=== PATIENT | male | born 1950 | race Two or more races ===

== ENCOUNTER → 2017-07-03 | Outpatient (CLI) | payer MEDICARE ==
[~2017-07-03] VITALS: Ht 188 cm; Wt 101.3 kg
[~2017-07-03] MED LIST: ASPI81TA23 PO; CHLORHEXIDINE GLUCONATE 2 % 1 PACK (2 CLOTHS) TOPICAL PRN; LACTATED RINGER'S 1000 ML IV PRN; LIDOCAINE HCL 1% PF 5 ML SYRINGE OTHER ONE; METOPROLOL TARTRATE 25 MG TAB PO PRN; OMEP40CA2 PO; POVIDONE IODINE 5% (ANTISEPSIS KIT) 4 APPLICATIONS EACH NARE PRN; PROPOFOL 200 MG/20 ML AMP IV ONE; PROPOFOL 200 MG/20 ML AMP ONE; SODIUM CHLORID 0.9% 500 ML IV PRN; VYTO10TA9 PO
[2017-07-03 08:32] VITALS: BP 134/89; PULSE 89; RESP 20; TEMP 97.5; O2SAT 98
--- NOTE | 2017-07-03 11:21 | EKG ---
Date Performed: 07/03/2017 Time Performed: 08:16:46 PTAGE: 66 years EKG: ECTOPIC ATRIAL RHYTHM INCOMPLETE RIGHT BUNDLE BRANCH BLOCK LEFT ANTERIOR FASCICULAR BLOCK A BNORMAL ECG PREVIOUS TRACING : 11/26/2003 08.05 DOCTOR: Jak García Interpretating Date/Time 07/03/2017 11:20:57
--- NOTE | 2017-07-03 11:37 | PD.PROCEDR ---
GI Procedure PROCEDURE PERFORMED Endoscopic ultrasound followed by colonoscopy with biopsy INDICATION FOR PROCEDURE Recent episode of obstructive jaundice with elevated CA 199 and a history of colon polyps PROCEDURE: The procedure, risks and benefits were discussed with Mr. Scott and informed consent was obtained. Anesthesia sedated him with Diprivan. He was placed in the left lateral decubitus position. Endoscopic ultrasound: The Pentax videoscope was introduced through the oropharynx and advanced to the second portion of the duodenum FINDINGS: The pancreas appeared to be unremarkable within normal limits hallway from the tail to the head of the pancreatic duct was normal in caliber no masses were seen no lymphadenopathy in was homogeneous all the way through Common bile duct appeared to be unremarkable and within normal limits no filling defects The gallbladder was noted to have stones within No lymphadenopathy seen Colonoscopy: The Pentax videoscope was introduced through the rectum and advanced to cecum where the ileocecal valve and appendiceal orifice were identified. Retroflexion was performed in the rectum. Colonic prep was good FINDINGS: Colonic withdrawal time greater than 6 minutes as the scope was slowly withdrawn colonic mucosa was carefully inspected the patient was noted to have 2 small diminutive polyps one in the sigmoid one in the rectum both were excised using cold biopsy forceps the patient was also noted to have moderate diverticulosis of the sigmoid and on retroflexion he was noted to have moderate size internal hemorrhoids otherwise colonic examination was unremarkable ESTIMATED BLOOD LOSS: None SPECIMENS REMOVED: Colonic biopsies COMPLICATIONS: None IMPRESSION: Gallstones otherwise unremarkable endoscopic ultrasound Elevated CA 199 of unclear significance Colon polyps Diverticulosis Internal hemorrhoids PLAN: Await biopsies Repeat CT scan of the abdomen with pancreatic protocol with contrast in 1 month Repeat CA 19-9 with CBC and CMP in one month Follow-up in clinic after above tests have been done Colonoscopy in 5 years High fiber diet Ryley Walter MD Jul 03, 2017 11:37
[2017-07-03 12:10] VITALS: BP 120/90; PULSE 78; RESP 20; TEMP 97.5; O2SAT 97
== END ==
LOC: HEND 07:35
PROVIDERS: ATTEND Internal Medicine Gastroenterology
DX: Z86.010 Personal history of colon polyps (principal); D12.5 Benign neoplasm of sigmoid colon; K62.1 Rectal polyp; K64.8 Other hemorrhoids; K57.30 Diverticulosis of large intestine without perforation or abscess without bleeding; K80.20 Calculus of gallbladder without cholecystitis without obstruction; R74.8 Abnormal levels of other serum enzymes; I45.10 Unspecified right bundle-branch block
CPT/HCPCS: 00813; 43259; 45380; 88305; 93005; J7120